=== PATIENT | male | born 1970 | race Caucasian/White ===

== ENCOUNTER 2016-09-09 15:51 | Emergency (ER) | payer OTHER ==
[~2016-09-09] VITALS: Ht 180.3 cm; Wt 129.3 kg
[~2016-09-09 15:51] MED LIST: CHOL4PAC19; CYCL10TA9 PO; FLUT1DIS26; MESA1.2T; NAPR-243 PO; NYST1000; OMEP-10; PRAM28CR2; SULF1TAB38 PO; TROL85CR
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
[2016-09-09] MEDS ORDERED: HYDROcodone/APAP 10 MG/325 MG (LORTAB) TAB PO STA (16:59)
[2016-09-09] MEDS ORDERED: KETOROLAC 60 MG/2 ML VIAL IM STA (16:59)
[2016-09-09] MEDS ORDERED: ORPHENADRINE 60 MG/2 ML (NORFLEX) AMP IM STA (16:59)
--- NOTE | 2016-09-09 17:30 | Diagnostic Imaging Report ---
INDICATION: Right-sided neck pain. No trauma reported. EXAMINATION: Three views of the cervical spine were obtained. FINDINGS: Good alignment of the vertebral bodies. Body heights and disc spaces are well maintained. Atlantoaxial joint is intact. Prevertebral soft tissues are not widened. No fractures are demonstrated. IMPRESSION: Normal cervical spine. Dictated by: Dictated on workstation # [id number]
[2016-09-09] MEDS ORDERED: CYCL10TA9 PO (18:36)
[2016-09-09] MEDS ORDERED: PRD20T PO (18:36)
[2016-09-09] MEDS ORDERED: HYDR-3812 PO (18:36)
[2016-09-09 18:54] VITALS: BP 110/78
== END 2016-09-09 18:54 | disposition home or self-care (01) ==
LOC: EDUNIT# 15:51 → ER 15:53
DX: M43.6 Torticollis (principal); S29.012A Strain of muscle and tendon of back wall of thorax, initial encounter; X58.XXXA Exposure to other specified factors, initial encounter; Y99.8 Other external cause status
CPT/HCPCS: 72040; 96372

== ENCOUNTER → 2016-12-14 | Outpatient (CLI) | payer OTHER ==
[~2016-12-14] MED LIST changes: +HYDR-3812 PO; +PRD20T PO
[2016-12-14 12:54] LABS: ALANINE AMINOTRANSFERASE 31 U/L (0-55); ALBUMIN 4.1 G/DL (3.2-4.5); ANION GAP 8 MMOL/L (5-14); ASPARTATE AMINO TRANSFERASE 18 U/L (5-34); BILIRUBIN,TOTAL 0.6 MG/DL (0.1-1.0); BLOOD UREA NITROGEN 13 MG/DL (7-18); BUN/CREATININE RATIO 16; CARBON DIOXIDE 27 MMOL/L (21-32); CHLORIDE 106 MMOL/L (98-107); CHOLESTEROL 176 MG/DL (< 200); DIRECT LDL 121 MG/DL (1-129); GFR ESTIMATED > 60; GLUCOSE 93 MG/DL (70-105); POTASSIUM 4.1 MMOL/L (3.6-5.0); SODIUM 141 MMOL/L (135-145); TOTAL PROTEIN 6.8 G/DL (6.4-8.2); TRIGLYCERIDES 71 MG/DL (<150); VLDL CHOLESTEROL 14 MG/DL (5-40)
== END ==
LOC: LAB 12:20
PROVIDERS: ATTEND Family Medicine
DX: Z00.00 Encounter for general adult medical examination without abnormal findings (principal); Z13.1 Encounter for screening for diabetes mellitus; Z13.220 Encounter for screening for lipoid disorders
CPT/HCPCS: 36415; 80053; 80061

== ENCOUNTER 2017-08-03 08:11 | Day surgery (SDC) | payer OTHER ==
[~2017-08-03] VITALS: Ht 180.3 cm; Wt 129.3 kg
[~2017-08-03 08:11] MED LIST changes: +BUDE10.2 IH
[2017-08-03] MEDS ORDERED: LACTATED RINGERS 1,000 ML IV ONE (08:20)
[2017-08-03 08:30] VITALS: BP 120/76
[2017-08-03] MEDS ORDERED: LACTATED RINGERS 1,000 ML IV PRN (08:30)
[2017-08-03] MEDS ORDERED: MIDAZOLAM 5 MG/5 ML (VERSED) VIAL ONE (08:36)
[2017-08-03] MEDS ORDERED: proPOfol 200 MG/20 ML (DIPRIVAN) VIAL IV ONE (08:36)
--- NOTE | 2017-08-03 08:51 | Progress Note-Pre Operative ---
Pre-Operative Progress Note H&P Reviewed The H&P was reviewed, patient examined and no changes noted. Date Seen by Provider: Aug 03, 2017 Time Seen by Provider: 08:40 Date H&P Reviewed: Aug 03, 2017 Time H&P Reviewed: 08:40 Pre-Operative Diagnosis: dysphagia MEHREEN FIGUEROA DO Aug 03, 2017 08:51
[2017-08-03] MEDS ORDERED: HURRICAINE EXT TUBE (BENZOCAINE) XX PRN (09:15)
--- NOTE | 2017-08-03 09:20 | Progress Note-Post Operative ---
Post-Operative Progess Note Surgeon (s)/Marine Technician (s) Surgeon MEHREEN FIGUEROA DO Marine Technician: na Pre-Operative Diagnosis dysphagia Post-Operative Diagnosis antral ulceration, slight reflux esophagitis Procedure & Operative Findings Date of Procedure 08/03/17 Procedure Performed/Findings egd c biopsies Anesthesia Type per transit proof machine operator Estimated Blood Loss Estimated blood loss (mL): scant Specimens/Packing Specimens Removed antrum and ge junction MEHREEN FIGUEROA DO Aug 03, 2017 09:20
[2017-08-03] MEDS ORDERED: SUCR1TAB36 PO (09:21)
[2017-08-03] MEDS ORDERED: PANT40TA2 PO (09:21)
--- NOTE | 2017-08-03 09:22 | Discharge Inst-Simple/Standard ---
Discharge Inst-Standard Discharge Medications New, Converted or Re-Newed RX: Transmitted to Pharmacy Patient Instructions/Follow Up Plan of Care/Instructions/FU: 2-3 weeks nathalie Activity as Tolerated: Yes Discharge Diet: Regular Diet MEHREEN FIGUEROA DO Aug 03, 2017 09:22
[2017-08-03 09:45] VITALS: BP 127/62
[2017-08-03] MEDS ORDERED: HURRICAINE EXT TUBE (BENZOCAINE) ONE (10:07)
[2017-08-03 10:10] VITALS: BP 119/78
[2017-08-03 10:15] VITALS: BP 119/78
--- NOTE | 2017-08-03 13:56 | OPERATIVE REPORT ---
DATE OF SERVICE: 08/03/2017 PREOPERATIVE DIAGNOSIS: Dysphagia. POSTOPERATIVE DIAGNOSES: Antral ulceration and reflux esophagitis. PROCEDURE: EGD with biopsies. SURGEON: Mehreen Ferrer DO. ANESTHESIA: Per CARPET INSPECTOR FINISHED. ESTIMATED BLOOD LOSS: Scant. COMPLICATIONS: None. INDICATIONS: The patient is a 46-year-old male with some difficulty with swallowing. He understands risks and benefits of procedure and wished to proceed with procedure. Consent was signed in the chart. PROCEDURE: The patient was taken to the endoscopy suite, placed in left lateral recumbent position. Timeout was performed. Scope was inserted in mouth, down the esophagus, stomach and into the duodenum without difficulty. There are some slight erythematous changes within the duodenum. Scope was slowly retracted back into the stomach, which was further insufflated. The antrum ulceration visualized more linear. Biopsy of this area was obtained. Another biopsy of the antrum was obtained. The scope was retroflexed noting no hiatal hernia. No polyps, masses or ulcerations. Scope was returned to its normal position, slowly withdrawn to the distal esophagus which at the GE junction had some slight erythematous changes consistent with reflux esophagitis. Biopsy was obtained. Scope was then slowly retracted back noting no other pathology. The patient tolerated procedure well without any complications and was taken to recovery room in stable condition. RECOMMENDATIONS: The patient will be started on Protonix 40 mg daily and Carafate 1 gram four times a day and we will have follow up on biopsies to see how he is doing in approximately two to three weeks. If he has any problems prior to that, he should be reevaluated at that time. Job ID: [id number] DocumentID: [id number] Dictated Date: 08/03/2017 09:24:47 Financial Administrator Date: 08/03/2017 13:55:25 Dictated By: MEHREEN FERRER DO [facility]
== END 2017-08-03 10:20 | disposition home or self-care (01) ==
LOC: ENDO 08:11
PROVIDERS: ATTEND Surgery
DX: K21.0 Gastro-esophageal reflux disease with esophagitis (principal); K25.9 Gastric ulcer, unspecified as acute or chronic, without hemorrhage or perforation; J45.909 Unspecified asthma, uncomplicated; G47.33 Obstructive sleep apnea (adult) (pediatric)

== ENCOUNTER 2019-05-26 08:59 | Emergency (ER) | payer SELFPAY ==
[~2019-05-26] VITALS: Ht 180 cm; Wt 121.0 kg
[~2019-05-26 08:59] MED LIST changes: +ACHD5005 PO; -HYDR-3812 PO; +PANT40TA2 PO; +SUCR1TAB36 PO
--- NOTE | 2019-05-26 09:23 | ED Chest Pain ---
General Chief Complaint: Chest Pain Stated Complaint: CHEST PAIN;LEFT ARM NUMB Source: patient Exam Limitations: no limitations History of Present Illness Date Seen by Provider: May 26, 2019 Time Seen by Provider: 09:01 Initial Comments Patient presents to ER by private conveyance with chief complaint of 2 weeks of chest pain shortness of breath. It's in his left chest. The intermittent pain is not related to exertion. He has not had it checked out. He started new job about a week ago. He said just about half hour prior to arrival his chest pain shot up to an 8 out of 10, sharp radiating down his left arm with some tingling in his fingers. He had no nausea or jaw or neck pain. He's had a gallbladder out many years ago. No history of coronary disease hypertension and hyperlipidemia smoking or diabetes. He follows with Dr. Frankel. He takes some vitamins, magnesium, zinc, vitamin C etc. but no other routine medications. He denies any medical allergies but says that he avoids morphine because people in his family have had kidney failure secondary to it. He had some loose stool earlier today. He says he feels like he has a lot of gas buildup in his colon and rumbling in his abdomen. No abdominal pain. He says he does have a history of diverticulosis. He says the pain 30 minutes ago was 8 out of 10 now it is 5 out of 10. EGD [address] Figueroa for dysphagia showing antral ulceration and reflux esophagitis. Allergies and Home Medications Allergies Coded Allergies: morphine (Verified Adverse Reaction, Unknown, 05/26/19) Home Medications Budesonide/Formoterol Fumarate 10.2 Gm Hfa.aer.ad, 2 PUFF IH BID, (Reported) Omeprazole 40 Mg Capsule., 40 MG PO DAILY Prescribed by: DEX DANIEL on 05/26/19 111 Pantoprazole Sodium 40 Mg Tablet., 40 MG PO DAILY Prescribed by: MEHREEN FIGUEROA on 08/03/17920 Sucralfate 1 Gm Tablet, 1 GM PO Q6H Prescribed by: MEHREEN FIGUEROA on 08/03/17920 Sucralfate 1 Gm Tablet, 1 GM PO QIDACHS Prescribed by: DEX DANIEL on 05/26/19 1117 Patient Home Medication List Home Medication List Reviewed: Yes Review of Systems Review of Systems Constitutional: No chills, No fever, No malaise EENTM: No Blurred Vision, No Double Vision Respiratory: Denies Cough, Denies Shortness of Air Cardiovascular: See HPI, Chest Pain; Denies Edema Gastrointestinal: See HPI, Abdomen Distended; Denies Abdominal Pain, Denies Co nstipated; Diarrhea; Denies Nausea, Denies Poor Fluid Intake Genitourinary: Denies Burning, Denies Discharge Musculoskeletal: No back pain, No joint pain Past Wasquzf-Ceclpr-Sytmfw Hx Patient Social History Alcohol Use: Denies Use Recreational Drug Use: No Smoking Status: Never a Smoker Recent Hopitalizations: No Physical Abuse: No Sexual Abuse: No Mistreated: No Fear: No Seasonal Allergies Seasonal Allergies: No Past Medical History Surgeries: Yes (FOOT SURGERY-1998) Gallbladder, Vasectomy Respiratory: Yes Asthma, Sleep Apnea Currently Using CPAP: Yes Cardiac: No Neurological: No Reproductive Disorders: No Gastrointestinal: No (dysphagia) Musculoskeletal: Yes Endocrine: No HEENT: No Cancer: No Psychosocial: No Integumentary: No Blood Disorders: No Family Medical History No Pertinent Family Hx Physical Exam Vital Signs Vital Signs - First Documented 05/26/19 09:11 Temp 37.0 Pulse 64 Resp 20 B/P (MAP) 121/83 (96) Pulse Ox 97 O2 Delivery Room Air Capillary Refill : Less Than 3 Seconds Height, Weight, BMI Height: 5'11.00" Weight: 285lbs. 0.0oz. 129.218190fh; 39.8 BMI Method:Stated General Appearance: Mild Distress, Obese HEENT: PERRL/EOMI, Pharynx Normal, Moist Mucous Membranes Neck: Full Range of Motion, Normal Inspection Respiratory: Lungs Clear, Normal Breath Sounds, No Accessory Muscle Use, No Respiratory Distress, Other (minimal chest pain reproduced on direct palpation of left anterior chest) Cardiovascular: Regular Rate, Rhythm, No Edema, Normal Peripheral Pulses Gastrointestinal: Normal Bowel Sounds (active), No Organomegaly, Non Tender, Soft Extremity: Normal Capillary Refill, Normal Inspection Progress/Results/Core Measures Results/Orders Lab Results Laboratory Tests Test 05/26/19 09:14 05/26/19 11:33 Range/Units White Blood Count 5.8 4.3-11.0 10^3/uL Red Blood Count 5.02 4.35-5.85 10^6/uL Hemoglobin 15.5 13.3-17.7 G/DL Hematocrit 46 40-54 % Mean Corpuscular Volume 92 80-99 FL Mean Corpuscular Hemoglobin 31 25-34 PG Mean Corpuscular Hemoglobin Concent 34 32-36 G/DL Red Cell Distribution Width 14.3 10.0-14.5 % Platelet Count 269 130-400 10^3/uL Mean Platelet Volume 9.2 7.4-10.4 FL Neutrophils (%) (Auto) 71 42-75 % Lymphocytes (%) (Auto) 15 12-44 % Monocytes (%) (Auto) 11 0-12 % Eosinophils (%) (Auto) 3 0-10 % Basophils (%) (Auto) 0 0-10 % Neutrophils # (Auto) 4.1 1.8-7.8 X 10^3 Lymphocytes # (Auto) 0.9 L 1.0-4.0 X 10^3 Monocytes # (Auto) 0.6 0.0-1.0 X 10^3 Eosinophils # (Auto) 0.2 0.0-0.3 10^3/uL Basophils # (Auto) 0.0 0.0-0.1 10^3/uL Prothrombin Time 12.7 12.2-14.7 SEC INR Comment 0.9 0.8-1.4 Activated Partial Thromboplast Time 30 24-35 SEC Sodium Level 141 135-145 MMOL/L Potassium Level 3.4 L 3.6-5.0 MMOL/L Chloride Level 107 98-107 MMOL/L Carbon Dioxide Level 23 21-32 MMOL/L Anion Gap 11 5-14 MMOL/L Blood Urea Nitrogen 8 7-18 MG/DL Creatinine 0.77 0.60-1.30 MG/DL Estimat Glomerular Filtration Rate > 60 BUN/Creatinine Ratio 10 Glucose Level 107 H 70-105 MG/DL Calcium Level 9.2 8.5-10.1 MG/DL Corrected Calcium 9.3 8.5-10.1 MG/DL Magnesium Level 2.1 1.6-2.4 MG/DL Total Bilirubin 0.7 0.1-1.0 MG/DL Aspartate Amino Transf (AST/SGOT) 31 5-34 U/L Alanine Aminotransferase (ALT/SGPT) 55 0-55 U/L Alkaline Phosphatase 44 40-136 U/L Myoglobin 138.3 H 10.0-92.0 NG/ML Troponin I < 0.028 < 0.028 <0.028 NG/ML B-Type Natriuretic Peptide 63.2 <100.0 PG/ML Total Protein 6.3 L 6.4-8.2 GM/DL Albumin 3.9 3.2-4.5 GM/DL Lipase 19 8-78 U/L My Orders Orders - FREDYDEX J Continuous Ekg Monitoring (05/26/19 09:06) Ekg Tracing (05/26/19 09:06) Cbc With Automated Diff (05/26/19 09:16) Magnesium (05/26/19 09:16) Chest 1 View, Ap/Pa Only (05/26/19 09:16) Cardiac Profile 1 (05/26/19 09:16) Comprehensive Metabolic Panel (05/26/19 09:16) Myoglobin Serum (05/26/19 09:16) Protime With Inr (05/26/19 09:16) Partial Thromboplastin Time (05/26/19 09:16) O2 (05/26/19 09:16) Lipid Panel (05/27/19 06:00) Ed Iv/Invasive Line Start (05/26/19 09:16) Lipase (05/26/19 09:16) BNP (05/26/19 09:16) Nitroglycerin 0.4 Mg Btl 25's (Nitrostat (05/26/19 09:30) Aspirin Chewable Tablet (Baby Aspirin Ch (05/26/19 09:30) Lidocaine 2% Viscous 15 Ml (Xylocaine Vi (05/26/19 10:00) Antacid Suspension (Mylanta Suspension (05/26/19 10:00) Pepcid Po (05/26/19 09:47) Troponin I (05/26/19 11:30) Ketorolac Injection (Toradol Injection) (05/26/19 12:00) Medications Given in ED Current Medications Medications Dose Ordered Sig/Alin Route Start Time Stop Time Status Last Admin Dose Admin Al Hydrox/Mg Hydrox/Simethicone 30 ml ONCE ONCE PO 05/26/19 10:00 05/26/19 10:01 DC 05/26/19 09:52 30 ML Aspirin 324 mg ONCE ONCE PO 05/26/19 09:30 05/26/19 09:31 DC 05/26/19 09:36 324 MG Lidocaine HCl 15 ml ONCE ONCE PO 05/26/19 10:00 05/26/19 10:01 DC 05/26/19 09:52 15 ML Nitroglycerin 0.4 mg UD PRN SL 05/26/19 09:30 05/26/19 09:36 0.4 MG Vital Signs/I&O 05/26/19 05/26/19 09:11 09:11 Temp 37.0 Pulse 64 Resp 20 B/P (MAP) 121/83 (96) Pulse Ox 97 O2 Delivery Room Air Progress Progress Note #1: Time: : Progress Note Aspirin and nitroglycerin. If nitroglycerin does not help try GI cocktail. It's possible he has diverticulitis which is causing referred chest and shoulder pain. Cardiac workup. Lung sound clear. Gastritis, PUD, or pancreatitis are also possibilities. If the troponin is negative then his heart score is 3 points. Low risk; 0.91.7% 30-day MACE Repeat troponin at 3 hours and if negative, discharge home with outpatient follow-up. Progress Note #2: Time: : Progress Note Epigastric tenderness as disappeared after the GI cocktail. However still having some tingling in the forearm and 1 out of 10 pain in the chest is reproducible by direct palpation. Suspect there are multiple things going on. He does have a history of this erosive esophagitis. Plan to put him out with Carafate and omeprazole. Delta troponin 4 hours after the start of the last episode the 11:30 this morning. If it's negative we will get him set up for outpatient follow-up with Dr. Keane Wednesday or Wednesday and with Dr. Pardo to discuss why he is having the chest wall discomfort and paresthesias of the left upper extremity. Initial ECG Impression Date: May 26, 2019 Initial ECG Impression Time: 09:05 Initial ECG Rate: 65 Initial ECG Rhythm: Normal Sinus Initial ECG Intervals: Normal Initial ECG Impression: Normal, Nonspecific Changes Initial ECG Comparisson: No Previous ECG Available Comment Normal sinus rhythm without ST elevation or depression. Diagnostic Imaging Diagonstic Imaging: Xray Plain Films/CT/US/NM/MRI: chest (1v) Comments NAME: KATEY MEJIA [facility] REC#: [id number] PT STATUS: REG ER : 1970 PHYSICIAN: DEX DANIEL MD ADMIT DATE: 05/26/19/ER Draft Date of Exam:05/26/19 CHEST 1 VIEW, AP/PA ONLY Patient History: Chest pain. Technique: Single frontal view of the chest Comparison: 01/24/2007 FINDINGS: The lung volumes are normal. No focal consolidation is seen. No large pleural effusion or pneumothorax is seen. The cardiomediastinal silhouette is normal in size and contour. No acute osseous abnormality is seen. IMPRESSION: No acute pulmonary abnormality seen. Dictated on workstation # [id number] Dict: 05/26/19929 Trans: 05/26/19930 [facility] [id number] Interpreted by: WILMAR BEAR MD Electronically signed by: Reviewed: Reviewed by Me Departure Impression Primary Impression: Chest pain Qualified Codes: R07.9 - Chest pain, unspecified Additional Impressions: Gastroesophageal reflux disease Qualified Codes: K21.9 - Gastro-esophageal reflux disease without esophagitis Paresthesia and pain of left extremity Disposition: 01 HOME, SELF-CARE Condition: Stable Departure-Patient Inst. Decision time for Depature: 11:59 Referrals: SARAH KEANE MD, RACHEL L MD (PCP/Family) Primary Care Physician Patient Instructions: Chest Pain (DC) Add. Discharge Instructions: For the chest wall pain plan to use ibuprofen and Tylenol as necessary. Follow-up with Dr. Keane by calling his clinic for an appointment Wednesday or . You should also plan a follow-up appointment afterwards with Dr. Pardo, primary care to discuss the findings from the international account representative as well as what could be causing her symptoms of your left arm and management of your acid reflux symptoms. A 2 week course of Carafate 1 tablet half hour prior to meals and at bedtime can be very helpful for your belly discomfort. I would also recommend taking omeprazole 40 mg daily at the same time. Follow-up with either Dr. Nabil Pardo for your acid reflux if not seeing improvement after this. Return to the ER for having more chest pain that is persistent and does not respond to Tylenol and ibuprofen. All discharge instructions reviewed with patient and/or family. Voiced understanding. Scripts Omeprazole (Omeprazole) 40 Mg Capsule.dr 40 MG PO DAILY for 14 Days, #14 CAP 0 Refills Prov: DEX DANIEL 05/26/19 Sucralfate (Carafate) 1 Gm Tablet 1 GM PO QIDACHS for 14 Days, #56 TAB 0 Refills Prov: DEX DANIEL 05/26/19 Work/School Note: Work Release Form Date Seen in the Emergency Department: May 26, 2019 Return to Work: May 30, 2019 Restrictions: No Restrictions DEX DANIEL May 26, 2019 09:23
[2019-05-26] MEDS ORDERED: NITROGLYCERIN 0.4 MG SL TABS BTL 25'S SL PRN (09:30)
[2019-05-26] MEDS ORDERED: ASPIRIN 81 MG CHEW (CHILDREN'S ASA) PO ONE (09:30)
--- NOTE | 2019-05-26 09:33 | Diagnostic Imaging Report ---
Patient History: Chest pain. Technique: Single frontal view of the chest Comparison: 01/24/2007 FINDINGS: The lung volumes are normal. No focal consolidation is seen. No large pleural effusion or pneumothorax is seen. The cardiomediastinal silhouette is normal in size and contour. No acute osseous abnormality is seen. IMPRESSION: No acute pulmonary abnormality seen. Dictated by: Dictated on workstation # [id number]
[2019-05-26 09:34] LABS: BASOPHILS % (AUTO) 0 % (0-10); EOSINOPHILS # (AUTO) 0.2 10^3/uL (0.0-0.3); EOSINOPHILS % (AUTO) 3 % (0-10); HEMATOCRIT 46 % (40-54); HEMOGLOBIN 15.5 G/DL (13.3-17.7); LYMPHOCYTES # (AUTO) 0.9 X 10^3 (1.0-4.0); LYMPHOCYTES % (AUTO) 15 % (12-44); MEAN CORPUSCULAR HEMOGLOBIN 31 PG (25-34); MEAN CORPUSCULAR HGB CONC 34 G/DL (32-36); MEAN CORPUSCULAR VOLUME 92 FL (80-99); MEAN PLATELET VOLUME 9.2 FL (7.4-10.4); MONOCYTES # (AUTO) 0.6 X 10^3 (0.0-1.0); MONOCYTES % (AUTO) 11 % (0-12); NEUTROPHILS # (AUTO) 4.1 X 10^3 (1.8-7.8); NEUTROPHILS % (AUTO) 71 % (42-75); PLATELET COUNT 269 10^3/uL (130-400); RED CELL DISTRIBUTION WIDTH 14.3 % (10.0-14.5); WHITE BLOOD COUNT 5.8 10^3/uL (4.3-11.0)
[2019-05-26 09:45] LABS: INR 0.9 (0.8-1.4); PROTHROMBIN TIME PATIENT 12.7 SEC (12.2-14.7)
[2019-05-26] MEDS ORDERED: FAMOTIDINE 20 MG (PEPCID) TABLET PO STA (09:47)
[2019-05-26 09:52] LABS: ALANINE AMINOTRANSFERASE 55 U/L (0-55); ALBUMIN 3.9 GM/DL (3.2-4.5); ALKALINE PHOSPHATASE 44 U/L (40-136); BILIRUBIN,TOTAL 0.7 MG/DL (0.1-1.0); BUN/CREATININE RATIO 10; CALCIUM 9.2 MG/DL (8.5-10.1); CARBON DIOXIDE 23 MMOL/L (21-32); CHLORIDE 107 MMOL/L (98-107); CREATININE SERUM 0.77 MG/DL (0.60-1.30); GFR ESTIMATED > 60; GLUCOSE 107 MG/DL (70-105); LIPASE 19 U/L (8-78); MAGNESIUM 2.1 MG/DL (1.6-2.4); POTASSIUM 3.4 MMOL/L (3.6-5.0); SODIUM 141 MMOL/L (135-145); TOTAL PROTEIN 6.3 GM/DL (6.4-8.2)
[2019-05-26] MEDS ORDERED: LIDOCAINE 2% VISCOUS 15 ML UDC PO ONE (10:00)
[2019-05-26] MEDS ORDERED: ANTACID SUSP 30 ML UDC (MYLANTA) PO ONE (10:00)
[2019-05-26] MEDS ORDERED: OMEP40CA36 PO (11:17)
[2019-05-26] MEDS ORDERED: SUCR1TAB36 PO (11:17)
[2019-05-26] MEDS ORDERED: KETOROLAC 30 MG/ML VIAL IVP ONE (12:00)
[2019-05-26 12:39] VITALS: BP 123/72
== END 2019-05-26 12:35 | disposition home or self-care (01) ==
LOC: EDUNIT# 08:59 → ER 09:00
DX: R07.9 Chest pain, unspecified (principal); K21.9 Gastro-esophageal reflux disease without esophagitis; R20.2 Paresthesia of skin; M79.602 Pain in left arm; J45.909 Unspecified asthma, uncomplicated; G47.30 Sleep apnea, unspecified; Z99.89 Dependence on other enabling machines and devices; Z88.5 Allergy status to narcotic agent
CPT/HCPCS: 36415; 71045; 80053; 83690; 83735; 83874; 83880; 84484; 85025; 85610; 85730; 93005

== ENCOUNTER 2020-02-28 05:42 | Emergency (ER) | payer SELFPAY ==
[~2020-02-28] VITALS: Ht 180.3 cm; Wt 108.8 kg
[~2020-02-28 05:42] MED LIST changes: +OMEP40CA27 PO
[2020-02-28 05:50] VITALS: BP 121/95
[2020-02-28] MEDS ORDERED: RX-MUPIROCIN (BACTROBAN) 2% OINT 22 GM TUBE TOP STA (06:22)
--- NOTE | 2020-02-28 06:28 | ED Integumentary General ---
General Chief Complaint: Bite-Animal/Human/Insect Stated Complaint: POSS SPIDER BITE,LEFT LEG Nursing Triage Note: C/O BITE OF SOMEKIND ON HIS LEFT MEDIAL UPPER THIGH. VERBALIZES HE MARKED IT LAST NIGHT WITH A BLACK MARKER, AND USED SOME BAKING SODA PASTE TO DRAW OUT THE SWELLING. PATIENT STATES THIS AM IT IS BIGGER THAN LAST NIGHT AND STARTING TO ITCH. DENIES FEVER OR CHILLS, DENIES USE OF TYLENOL OR IBUPROFEN FOR PAIN RELIEF. Source: patient Exam Limitations: no limitations History of Present Illness Date Seen by Provider: Feb 28, 2020 Time Seen by Provider: 06:09 Initial Comments Here with report of bug bite to the left upper thigh that he notes it is getting a little bigger and has started itching. 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 He does wear shorts due to the heat and is con cerned about spider bite. His had a brown recluse spider bite previously and he is concerned that this may be what that is. States had 3 little dots initially but those are gone away and now just has the area of redness about the size of a quarter. Denies other systemic symptoms Timing/Duration: yesterday Severity: mild Location: extremities Possible Cause: insect bite Associated Symptoms: edema; No fever, No hives, No rash Allergies and Home Medications Allergies Coded Allergies: morphine (Verified Adverse Reaction, Unknown, 02/28/20) Home Medications Budesonide/Formoterol Fumarate 10.2 Gm Hfa.aer.ad, 2 PUFF IH BID, (Reported) Omeprazole 40 Mg Capsule., 40 MG PO DAILY Prescribed by: DEX DANIEL on 05/26/191116 Pantoprazole Sodium 40 Mg Tablet.dr, 40 MG PO DAILY Prescribed by: MEHREEN FIGUEROA on 08/03/17920 Sucralfate 1 Gm Tablet, 1 GM PO Q6H Prescribed by: MEHREEN FIGUEROA on 08/03/17920 Sucralfate 1 Gm Tablet, 1 GM PO QIDACHS Prescribed by: DEX DANIEL on 05/26/191116 Patient Home Medication List Home Medication List Reviewed: Yes Review of Systems Review of Systems Constitutional: see HPI; No chills, No fever Respiratory: no symptoms reported Cardiovascular: no symptoms reported Skin: see HPI, change in color, lesions, pruritus Past Jcuyefs-Lewniu-Bsixvd Hx Past Med/Social Hx: Reviewed Nursing Past Med/Soc Hx Patient Social History Alcohol Use: Denies Use Recreational Drug Use: No Recent Foreign Travel: No Contact w/Someone Who Travel: No Recent Infectious Disease Expo: No Recent Hopitalizations: No Physical Abuse: No Sexual Abuse: No Mistreated: No Fear: No Immunizations Up To Date Tetanus Booster (TDap): More than 5yrs PED Vaccines UTD: Yes Seasonal Allergies Seasonal Allergies: No Past Medical History Surgeries: Yes (FOOT SURGERY-1998) Gallbladder, Vasectomy Respiratory: Yes Asthma, Sleep Apnea Currently Using CPAP: Yes Cardiac: No Neurological: No Reproductive Disorders: No Genitourinary: No Gastrointestinal: No (dysphagia) Musculoskeletal: Yes Endocrine: No HEENT: No Cancer: No Psychosocial: No Integumentary: No Blood Disorders: No Family Medical History Reviewed Nursing Family Hx No Pertinent Family Hx Physical Exam Vital Signs Vital Signs - First Documented 02/28/20 05:50 Temp 36.7 Pulse 67 Resp 18 B/P (MAP) 121/95 (104) Pulse Ox 97 Capillary Refill : Less Than 3 Seconds General Appearance: WD/WN, no apparent distress Cardiovascular: regular rate, rhythm, no murmur Respiratory: lungs clear, normal breath sounds Skin: warm/dry, other (erythema) Skin Problem Location: lower extremities (left upper thigh) Skin Problem Character: erythema (2 cm erythematous area without central pustule or ulceration. No underlying significant induration or palpable abscess.) Progress/Results/Core Measures Results/Orders My Orders Orders - YUE PATTERSON MD Rx-Mupirocin 2% Oint (Rx-Bactroban) (02/28/20 06:22) Vital Signs/I&O 02/28/20 05:50 Temp 36.7 Pulse 67 Resp 18 B/P (MAP) 121/95 (104) Pulse Ox 97 Blood Pressure Mean: 104 Progress Progress Note : Progress Note Seen and evaluated. Mupirocin ointment over the area of concern. Discharged home with return precautions. Patient verbalize understanding instructions and agreement with plan. He is requesting a work note for today because he works in the heat and he wants the antibiotic to set, which was given. Departure Impression Primary Impression: Insect bites Qualified Codes: S70.362A - Insect bite (nonvenomous), left thigh, initial e ncounter; W57.XXXA - Bitten or stung by nonvenomous insect and other nonvenomous arthropods, initial encounter Disposition: 01 HOME, SELF-CARE Condition: Stable Departure-Patient Inst. Decision time for Depature: 06:29 Referrals: VANNESSA QUIROZ MD (PCP/Family) Primary Care Physician Patient Instructions: Insect Bites and Stings (DC), Spider Bites Add. Discharge Instructions: All discharge instructions reviewed with patient and/or family. Voiced understanding. You may use topical hydrocortisone cream over the wound twice daily and then cover with the antibiotic twice daily that was given. You may use a Band-Aid over the wound for the next few days and then as needed. You may use Tylenol or ibuprofen as needed for pain per package directions tolerated. Return for worse pain, increased swelling or itching, markedly increasing redness, fever, chills, bruising that seems to be draining down the leg or other concerns as needed. Work/School Note: Work Release Form Date Seen in the Emergency Department: Feb 28, 2020 Return to Work: Feb 29, 2020 Restrictions: No Restrictions YUE PATTERSON MD Feb 28, 2020 06:28
== END 2020-02-28 06:34 | disposition home or self-care (01) ==
LOC: EDUNIT# 05:42 → ER 05:47
DX: S70.362A Insect bite (nonvenomous), left thigh, initial encounter (principal); J45.909 Unspecified asthma, uncomplicated; Z88.5 Allergy status to narcotic agent; W57.XXXA Bitten or stung by nonvenomous insect and other nonvenomous arthropods, initial encounter
CPT/HCPCS: 99283

== ENCOUNTER 2020-12-08 15:44 | Emergency (ER) | payer OTHER ==
[~2020-12-08] VITALS: Ht 180 cm; Wt 129.0 kg
--- NOTE | 2020-12-08 16:21 | Diagnostic Imaging Report ---
INDICATION: Ankle pain. TECHNIQUE: Three views of the left ankle. CORRELATION STUDY: None. FINDINGS: Transversely oriented fracture of the most distal aspect of the fibula. There is approximately 2 mm diastasis from main fracture fragment. The distal tibia appears intact. Very slight prominent appearance about the ankle medial clear space. Tibiotalar relationship otherwise maintained. Rather significant soft tissue edema. Additionally, there is a lucency projecting over the cuboid bone on single view only. IMPRESSION: 1. Minimally displaced transversely oriented fracture of the distal fibula. Slight widening of the medial ankle joint space. Rather extensive soft tissue swelling. 2. Questionable lucency over the cuboid bone, only partially visualized and demonstrated on a single image only. Consideration for dedicated foot radiographs. Dictated by: Dictated on workstation # [id number]
--- NOTE | 2020-12-08 16:25 | ED Lower Extremity ---
General Chief Complaint: Lower Extremity Stated Complaint: LEFT ANKLE INJ Nursing Triage Note: PT REPORTS TO ED FOR LEFT ANKLE PAIN POST ROLLING IT AROUND 1315. PT REPORTS HE WAS STEPPING DOWN A STEP AT HIS SONS HOUSE WHEN HE ROLLED IT. Nursing Sepsis Screen: No Definite Risk History of Present Illness Date Seen by Provider: Dec 08, 2020 Time Seen by Provider: 16:00 Initial Comments 50-year-old male reports rolling his left ankle approximately 1315 today at his son's house, he was stepping down on stairs when it rolled. He has had previous surgery on the medial aspect of the left ankle by Dr. Lowe. No previous sprains to the left ankle. He is on crutches that he brought from home. He has not taken any pain medication and is denying any need for any at this time. Onset: just prior to arrival Severity: mild Pain/Injury Location: left heel Method of Injury: twisted Allergies and Home Medications Allergies Coded Allergies: morphine (Verified Adverse Reaction, Unknown, 02/28/20) Home Medications Budesonide/Formoterol Fumarate 10.2 Gm Hfa.aer.ad, 2 PUFF IH BID, (Reported) Omeprazole 40 Mg Capsule., 40 MG PO DAILY Prescribed by: DEX DANIEL on 05/26/19 111 Pantoprazole Sodium 40 Mg Tablet.dr, 40 MG PO DAILY Prescribed by: MEHREEN FIGUEROA on 08/03/17920 Sucralfate 1 Gm Tablet, 1 GM PO Q6H Prescribed by: MEHREEN FIGUEROA on 08/03/17920 Sucralfate 1 Gm Tablet, 1 GM PO QIDACHS Prescribed by: DEX DANIEL on 05/26/19 1117 Patient Home Medication List Home Medication List Reviewed: Yes Review of Systems Constitutional: no symptoms reported, see HPI Musculoskeletal: see HPI, joint pain (Lateral aspect left ankle) All Other Systems Reviewed Negative Unless Noted: Yes Past Hqnygce-Rcfhdz-Rohqts Hx Past Med/Social Hx: Reviewed Nursing Past Med/Soc Hx Patient Social History Alcohol Use: Rarely Uses Alcohol Beverage of Choice: Beer Smoking Status: Never a Smoker Recent Infectious Disease Expo: No Recent Hopitalizations: No Immunizations Up To Date Tetanus Booster (TDap): More than 5yrs PED Vaccines UTD: Yes Seasonal Allergies Seasonal Allergies: No Past Medical History Surgeries: Yes (FOOT SURGERY-1998) Gallbladder, Vasectomy Respiratory: Yes Asthma, Sleep Apnea Currently Using CPAP: Yes Cardiac: No Neurological: No Reproductive Disorders: No Genitourinary: No Gastrointestinal: No (dysphagia) Musculoskeletal: Yes Endocrine: No HEENT: No Cancer: No Psychosocial: No Integumentary: No Blood Disorders: No Family Medical History No Pertinent Family Hx Physical Exam Vital Signs Vital Signs - First Documented 12/08/20 15:51 Temp 36.8 Pulse 98 Resp 20 B/P (MAP) 122/80 (94) Pulse Ox 98 O2 Delivery Room Air Capillary Refill : Less Than 3 Seconds Height, Weight, BMI Height: 5'11.00" Weight: 285lbs. 0.0oz. [id number]; 39.00 BMI Method:Stated General Appearance: WD/WN, no apparent distress Cardiovascular: normal peripheral pulses, regular rate, rhythm Respiratory: chest non-tender, lungs clear, normal breath sounds Ankles: left ankle bone tenderness (Distal fibula), left ankle limited range of motion (Secondary to pain), left ankle soft tissue tenderness, left ankle swelling Neurologic/Tendon: normal sensation, normal motor functions, normal tendon functions Neurologic/Psychiatric: no motor/sensory deficits, alert, normal mood/affect, oriented x 3 Skin: normal color, warm/dry Progress/Results/Core Measures Results/Orders My Orders Orders - CHELY LION Ankle, Left, 3 Views (12/08/20 16:00) Foot, Left, 3 Views (12/08/20 16:39) Vital Signs/I&O 12/08/20 12/08/20 15:51 17:12 Temp 36.8 36.8 Pulse 98 80 Resp 20 20 B/P (MAP) 122/80 (94) 120/79 Pulse Ox 98 98 O2 Delivery Room Air Room Air Blood Pressure Mean: 94 Progress Progress Note : Time: 16:00 Progress Note Patient seen and evaluated will obtain x-ray of the left ankle. Ice pack to lateral aspect of left ankle. 1630 possible fracture along the cuboid, will obtain x-rays of the left foot. 1640 no fracture in the left foot. Walking boot applied. Patient instructed to be nonweightbearing on the left lower extremity. Discharge instructions and return precautions reviewed with the patient. Stressed the importance that he follow-up with orthopedics. Diagnostic Imaging Diagonstic Imaging: Xray Plain Films/CT/US/NM/MRI: ankle Comments NAME: KATEY MEJIA [facility] REC#: [id number] PT STATUS: REG ER : 1970 PHYSICIAN: CHELY LION ADMIT DATE: 12/08/20/ER Draft Date of Exam:12/08/20 ANKLE, LEFT, 3 VIEWS INDICATION: Ankle pain. TECHNIQUE: Three views of the left ankle. CORRELATION STUDY: None. FINDINGS: Transversely oriented fracture of the most distal aspect of the fibula. There is approximately 2 mm diastasis from main fracture fragment. The distal tibia appears intact. Very slight prominent appearance about the ankle medial clear space. Tibiotalar relationship otherwise maintained. Rather significant soft tissue edema. Additionally, there is a lucency projecting over the cuboid bone on single view only. IMPRESSION: 1. Minimally displaced transversely oriented fracture of the distal fibula. Slight widening of the medial ankle joint space. Rather extensive soft tissue swelling. 2. Questionable lucency over the cuboid bone, only partially visualized and demonstrated on a single image only. Consideration for dedicated foot radiographs. Dictated on workstation # [id number] Dict: 12/08/20 1616 Trans: 12/08/20 1620 PJE [id number] Diagonstic Imaging: Xray Comments NAME: KATEY MEJIA [facility] REC#: [id number] PT STATUS: REG ER : 1970 PHYSICIAN: CHELY LION ADMIT DATE: 12/08/20/ER Draft Date of Exam:12/08/20 FOOT, LEFT, 3 VIEWS EXAM: Left foot radiograph. EXAM DATE: 12/08/2020. COMPARISON: Left ankle radiograph at 12/08/2020. HISTORY: Left foot pain. TECHNIQUE: Three views of the left foot. FINDINGS: There is no acute fracture, dislocation or destructive osseous process. Joint spaces are normal. The soft tissues are normal. IMPRESSION: No acute osseous abnormality of the left foot. Dictated on workstation # [id number] Dict: 12/08/20 1646 Trans: 12/08/20 1650 PJE [id number] Interpreted by: HOMERO VAUGHN DO Electronically signed by: Reviewed: Reviewed by Me Departure Impression Primary Impression: Sprain and strain of ankle Additional Impression: Fracture of distal fibula Qualified Codes: S82.832A - Other fracture of upper and lower end of left fibula, initial encounter for closed fracture Disposition: 01 HOME, SELF-CARE Condition: Improved Departure-Patient Inst. Decision time for Depature: 16:40 Referrals: BARON PEREZ (PCP/Family) Primary Care Physician SAMUEL RODRÍGUEZ MD, MICHAEL P MD Patient Instructions: Ankle Sprain (DC), Fibula Fracture (DC) Add. Discharge Instructions: Ice and elevate your left ankle for 20 minutes every 2 hours while awake. You may alternate between Motrin 600 mg and Tylenol 650 mg every 4 hours for pain and swelling. Use the crutches at all times, nonweightbearing on your left lower extremity. Wear the boot while ambulatory, you may remove it at night for sleeping and when sitting. Follow-up with orthopedics in approximately 1 week. Return to the emergency department for new, urgent healthcare needs. All discharge instructions reviewed with patient and/or family. Voiced understanding. Work/School Note: Work Release Form Date Seen in the Emergency Department: Dec 08, 2020 Return to Work: Dec 10, 2020 Other Restrictions Listed Below: crutches and non-weight bearing left leg CHELY LION Dec 08, 2020 16:24
--- NOTE | 2020-12-08 16:50 | Diagnostic Imaging Report ---
EXAM: Left foot radiograph. EXAM DATE: 12/08/2020. COMPARISON: Left ankle radiograph at 12/08/2020. HISTORY: Left foot pain. TECHNIQUE: Three views of the left foot. FINDINGS: There is no acute fracture, dislocation or destructive osseous process. Joint spaces are normal. The soft tissues are normal. IMPRESSION: No acute osseous abnormality of the left foot. Dictated by: Dictated on workstation # [id number]
[2020-12-08 17:12] VITALS: BP 120/79
== END 2020-12-08 17:12 | disposition home or self-care (01) ==
LOC: EDUNIT# 15:44 → ER 15:47
DX: S82.832A Other fracture of upper and lower end of left fibula, initial encounter for closed fracture (principal); S93.402A Sprain of unspecified ligament of left ankle, initial encounter; S96.912A Strain of unspecified muscle and tendon at ankle and foot level, left foot, initial encounter; J45.909 Unspecified asthma, uncomplicated; Z79.51 Long term (current) use of inhaled steroids; Z88.5 Allergy status to narcotic agent; X50.1XXA Overexertion from prolonged static or awkward postures, initial encounter; Y92.009 Unspecified place in unspecified non-institutional (private) residence as the place of occurrence of the external cause
CPT/HCPCS: 73610; 73630

== ENCOUNTER → 2021-02-03 | Outpatient (CLI) | payer OTHER ==
--- NOTE | 2021-02-03 13:21 | Diagnostic Imaging Report ---
EXAMINATION: Left ankle 3 views HISTORY: LT DISTAL FIBULA FRACTURE, LT FOOT PAIN COMPARISON: Left ankle radiograph 12/08/2020 FINDINGS: There has been interval healing of the transverse fracture of the distal left fibula at the lateral malleolus. There is periosteal reaction. No significant displacement. No new acute fracture, dislocation, or destructive osseous process. There is mild diffuse soft tissue swelling. IMPRESSION: 1. Interval healing of the distal left fibula fracture compared to 12/08/2020. Dictated by: Dictated on workstation # [id number]
--- NOTE | 2021-02-03 13:48 | Diagnostic Imaging Report ---
INDICATION: Left foot pain 3 views of the left foot show no fracture, dislocation or other acute abnormalities. IMPRESSION: Negative left foot Dictated by: Dictated on workstation # [id number]
== END ==
LOC: RAD 11:52
PROVIDERS: ATTEND Physician Assistant
DX: S82.832D Other fracture of upper and lower end of left fibula, subsequent encounter for closed fracture with routine healing (principal); X58.XXXD Exposure to other specified factors, subsequent encounter
CPT/HCPCS: 73610; 73630

== ENCOUNTER → 2021-06-04 | Outpatient (CLI) | payer OTHER ==
[~2021-06-04] MED LIST changes: -OMEP40CA27 PO; +OMEP40CA6 PO
[2021-06-04 11:56] LABS: BASOPHILS # (AUTO) 0.1 10^3/uL (0.0-0.1); BASOPHILS % (AUTO) 1 % (0-10); EOSINOPHILS # (AUTO) 0.6 10^3/uL (0.0-0.3); EOSINOPHILS % (AUTO) 8 % (0-10); HEMATOCRIT 49 % (40-54); LYMPHOCYTES # (AUTO) 1.6 10^3/uL (1.0-4.0); LYMPHOCYTES % (AUTO) 21 % (12-44); MEAN CORPUSCULAR HEMOGLOBIN 31 pg (25-34); MEAN CORPUSCULAR HGB CONC 33 g/dL (32-36); MEAN CORPUSCULAR VOLUME 95 fL (80-99); MONOCYTES # (AUTO) 0.9 10^3/uL (0.0-1.0); MONOCYTES % (AUTO) 11 % (0-12); NEUTROPHILS # (AUTO) 4.5 10^3/uL (1.8-7.8); NEUTROPHILS % (AUTO) 59 % (42-75); PLATELET COUNT 219 10^3/uL (130-400); WHITE BLOOD COUNT 7.7 10^3/uL (4.3-11.0)
[2021-06-04 12:07] LABS: ALBUMIN 4.1 GM/DL (3.2-4.5)
[2021-06-04 12:09] LABS: CALCIUM 9.2 MG/DL (8.5-10.1)
[2021-06-04 12:10] LABS: TOTAL PROTEIN 7.1 GM/DL (6.4-8.2)
[2021-06-04 12:12] LABS: BILIRUBIN,TOTAL 0.6 MG/DL (0.1-1.0)
[2021-06-04 12:14] LABS: CREATININE SERUM 0.78 MG/DL (0.60-1.30)
--- NOTE | 2021-06-04 12:20 | Diagnostic Imaging Report ---
Indication: Upper quadrant pain. TIME OF EXAM: 12:11 PM Heart size normal. Lungs are clear. No free air is identified. There are surgical clips in right quadrant. The bowel gas pattern appears nonobstructed. No pathologic calcifications are seen. IMPRESSION: No acute feature detected. Dictated by: Dictated on workstation # [id number]
== END ==
LOC: RAD 11:29
PROVIDERS: ATTEND Internal Medicine
DX: R10.11 Right upper quadrant pain (principal)
CPT/HCPCS: 36415; 74022; 80053; 82150; 83690; 85025; 86141

== ENCOUNTER → 2021-07-25 | Outpatient (CLI) | payer OTHER ==
[~2021-07-25] MED LIST changes: +CYCL10TA25 PO
== END ==
LOC: LABNPT 09:44
PROVIDERS: ATTEND Internal Medicine
DX: Z20.822 Contact with and (suspected) exposure to COVID-19 (principal)
CPT/HCPCS: 87636

== ENCOUNTER 2022-03-24 19:45 | Emergency (ER) | payer OTHER ==
[2022-03-24 20:14] VITALS: BP 153/89
[2022-03-24 20:21] LABS: BILIRUBIN,URINE NEGATIVE (NEGATIVE); CLARITY,URINE CLEAR; COLOR,URINE YELLOW; GLUCOSE, URINE (UA) NEGATIVE (NEGATIVE); KETONES,URINE NEGATIVE (NEGATIVE); LEUKOCYTE ESTERASE ,URINE NEGATIVE (NEGATIVE); NITRITE,URINE NEGATIVE (NEGATIVE); PH,URINE 6.5 (5-9); PROTEIN,URINE TRACE (NEGATIVE)
[2022-03-24] MEDS ORDERED: NS IV 1000 ML 1,000 ML IV STA (20:27)
[2022-03-24] MEDS ORDERED: fentaNYL INJ 100 MCG/2 ML AMP IVP STA (20:27)
[2022-03-24 20:30] LABS: BACTERIA,URINE NEGATIVE /HPF; WBC,URINE 0-2 /HPF
--- NOTE | 2022-03-24 20:30 | ED Abdominal Pain ---
General Chief Complaint: Abdominal/GI Problems Stated Complaint: LOWER ABD PAIN Nursing Triage Note: PT PRESENTS WITH LLQ PAIN X4 HOURS. DENIES N/V/D Source of Information: Patient Exam Limitations: No Limitations (FLYNN BLACKMAN) History of Present Illness Date Seen by Provider: Mar 24, 2022 Time Seen by Provider: 20:28 Initial Comments Patient is a 51-year-old male who presents ED with left-sided abdominal pain located to the left lower quadrant. acute onset about 4 to 5 hours ago. Pain has increased with radiation to the right lower abdomen. Denies of any urinary symptoms, increased urine frequency, hematuria. Similar pain 2 weeks ago that resolved after drinking water. He attempted to drink water this evening with no improvement. Denies nausea, vomiting, diarrhea. History of cholecystectomy. Denies of any recent travels or surgeries. Denies taking pain medication at home. (FLYNN BLACKMAN) Allergies and Home Medications Allergies Coded Allergies: morphine (Verified Adverse Reaction, Unknown, 02/28/20) Patient Home Medication List Home Medication List Reviewed: Yes (FLYNN BLACKMAN) Budesonide/Formoterol Fumarate (Symbicort 160-4.5 Mcg Inhaler) 10.2 Gm Hfa.aer.ad, 2 PUFF IH BID, (Reported) Entered as Reported by: BHARATHI SHARPE on 07/28/17 1444 Cephalexin (Cephalexin) 500 Mg Tablet, 500 MG PO BID Prescribed by: TOM MARQUES on 03/24/222142 Hydrocodone/Acetaminophen (Hydrocodone-Acetamin 5-325 mg) 5 Mg-325 Mg Tablet, 1 TAB PO Q4H PRN for PAIN-MODERATE (5-7) Prescribed by: TOM MARQUES on 03/24/222142 Omeprazole (Omeprazole) 40 Mg Capsule., 40 MG PO DAILY Prescribed by: DEX DANIEL on 05/26/19 1117 Ondansetron (Ondansetron Odt) 4 Mg Tab.rapdis, 4 MG PO Q4H Prescribed by: TOM MARQUES on 03/24/222142 Pantoprazole Sodium (Protonix) 40 Mg Tablet., 40 MG PO DAILY Prescribed by: MEHREEN FIGUEROA on 08/03/17920 Sucralfate (Carafate) 1 Gm Tablet, 1 GM PO Q6H Prescribed by: MEHREEN FIGUEROA on 08/03/17 09 Sucralfate (Carafate) 1 Gm Tablet, 1 GM PO QIDACHS Prescribed by: DEX DANIEL on 05/26/19 1117 Tamsulosin HCl (Flomax) 0.4 Mg Cap, 0.4 MG PO DAILY Prescribed by: TOM MARQUES on 03/24/222142 Review of Systems Review of Systems Constitutional: No chills, No diaphoresis, No malaise, No weakness EENTM: No Double Vision, No Eye Pain Respiratory: Denies Cough, Denies Orthopnea Cardiovascular: Denies Chest Pain Gastrointestinal: Abdominal Pain; Denies Diarrhea, Denies Nausea, Denies Vomiting Genitourinary: Denies Burning, Denies Discharge Musculoskeletal: No back pain, No joint pain Skin: No change in color (FLYNN BLACKMAN) All Other Systems Reviewed Negative Unless Noted: Yes (FLYNN BLACKMAN) Past Idntiug-Jqbmdd-Nkshic Hx Patient Social History Tobacco Use?: No Substance use?: No Alcohol Use?: No Pt feels they are or have been: No (FLYNN BLACKMAN) Immunizations Up To Date Tetanus Booster (TDap): More than 5yrs PED Vaccines UTD: Yes Influenza Vaccine Up-to-Date: No; Not Current (FLYNN BLACKMAN) Seasonal Allergies Seasonal Allergies: No (FLYNN BLACKMAN) Past Medical History Surgery/Hospitalization HX: GALLBLADDER Surgeries: Yes (FOOT SURGERY-1998) Gallbladder, Vasectomy Respiratory: Yes Asthma, Sleep Apnea Currently Using CPAP: Yes Cardiac: No Neurological: No Reproductive Disorders: No Genitourinary: No Gastrointestinal: No (dysphagia) Musculoskeletal: Yes Endocrine: No HEENT: No Cancer: No Psychosocial: No Integumentary: No Blood Disorders: No (FLYNN BLACKMAN) Family Medical History No Pertinent Family Hx (FLYNN BLACKMAN) Physical Exam Vital Signs Vital Signs - First Documented 03/24/22 20:14 Pulse 82 Resp 18 B/P (MAP) 153/89 (110) Pulse Ox 95 O2 Delivery Room Air (NE CAMP MD) Vital Signs Capillary Refill : (FLYNN BLACKMAN) Height/Weight/BMI Height: 5'11.00" Weight: 285lbs. 0.0oz. [id number]; 39.00 BMI Method:Stated General Appearance: WD/WN, no apparent distress HEENT: PERRL/EOMI, normal ENT inspection, TMs normal, pharynx normal Neck: non-tender, full range of motion, supple, normal inspection Respiratory: chest non-tender, lungs clear, normal breath sounds, no respiratory distress, no accessory muscle use Cardiovascular: regular rate, rhythm, no edema, no gallop, no JVD Gastrointestinal: normal bowel sounds, soft, no organomegaly, tenderness (Left lower quadrant tenderness on palpation. Normal bowel sounds throughout.) Extremities: normal range of motion, non-tender, normal inspection, no pedal edema Back: normal inspection, no CVA tenderness Pelvic: normal external exam, normal adnexa Skin: normal color, warm/dry (FLYNN BLACKMAN) Progress/Results/Core Measures Results/Orders Lab Results Laboratory Tests Test 03/24/22 20:17 03/24/22 20:24 Range/Units Urine Color YELLOW Urine Clarity CLEAR Urine pH 6.5 5-9 Urine Specific Bowie 1.025 H 1.016-1.022 Urine Protein TRACE H NEGATIVE Urine Glucose (UA) NEGATIVE NEGATIVE Urine Ketones NEGATIVE NEGATIVE Urine Nitrite NEGATIVE NEGATIVE Urine Bilirubin NEGATIVE NEGATIVE Urine Urobilinogen 1.0 < = 1.0 MG/DL Urine Leukocyte Esterase NEGATIVE NEGATIVE Urine RBC (Auto) 1+ H NEGATIVE Urine RBC 10-25 H /HPF Urine WBC 0-2 /HPF Urine Squamous Epithelial Cells NONE /HPF Urine Renal Epithelial Cells NONE /HPF Urine Crystals NONE /LPF Urine Bacteria NEGATIVE /HPF Urine Casts NONE /LPF Urine Mucus SMALL H /LPF Urine Culture Indicated NO White Blood Count 11.4 H 4.3-11.0 10^3/uL Red Blood Count 5.24 4.30-5.52 10^6/uL Hemoglobin 16.0 13.3-17.7 g/dL Hematocrit 48 40-54 % Mean Corpuscular Volume 92 80-99 fL Mean Corpuscular Hemoglobin 31 25-34 pg Mean Corpuscular Hemoglobin Concent 33 32-36 g/dL Red Cell Distribution Width 12.9 10.0-14.5 % Platelet Count 235 130-400 10^3/uL Mean Platelet Volume 9.0 9.0-12.2 fL Immature Granulocyte % (Auto) 0 % Neutrophils (%) (Auto) 75 42-75 % Lymphocytes (%) (Auto) 10 L 12-44 % Monocytes (%) (Auto) 11 0-12 % Eosinophils (%) (Auto) 3 0-10 % Basophils (%) (Auto) 1 0-10 % Neutrophils # (Auto) 8.5 H 1.8-7.8 10^3/uL Lymphocytes # (Auto) 1.2 1.0-4.0 10^3/uL Monocytes # (Auto) 1.3 H 0.0-1.0 10^3/uL Eosinophils # (Auto) 0.4 H 0.0-0.3 10^3/uL Basophils # (Auto) 0.1 0.0-0.1 10^3/uL Immature Granulocyte # (Auto) 0.0 0.0-0.1 10^3/uL Sodium Level 138 135-145 MMOL/L Potassium Level 3.7 3.6-5.0 MMOL/L Chloride Level 103 98-107 MMOL/L Carbon Dioxide Level 26 21-32 MMOL/L Anion Gap 9 5-14 MMOL/L Blood Urea Nitrogen 11 7-18 MG/DL Creatinine 1.09 0.60-1.30 MG/DL Estimat Glomerular Filtration Rate 82 BUN/Creatinine Ratio 10 Glucose Level 114 H 70-105 MG/DL Calcium Level 9.1 8.5-10.1 MG/DL Corrected Calcium 8.9 8.5-10.1 MG/DL Total Bilirubin 0.6 0.1-1.0 MG/DL Aspartate Amino Transf (AST/SGOT) 25 5-34 U/L Alanine Aminotransferase (ALT/SGPT) 46 0-55 U/L Alkaline Phosphatase 47 40-136 U/L Total Protein 7.0 6.4-8.2 GM/DL Albumin 4.2 3.2-4.5 GM/DL Lipase 13 8-78 U/L (NE CAMP MD) Medications Given in ED Current Medications Medications Dose Ordered Sig/Alin Route Start Time Stop Time Status Last Admin Dose Admin Iohexol 100 ml ONCE ONCE IV 03/24/22 20:45 8/2/22 20:46 DC 03/24/22 20:40 100 ML Ketorolac Tromethamine 30 mg ONCE ONCE IVP 03/24/22 21:15 03/24/22 21:16 DC 03/24/22 21:18 30 MG Sodium Chloride 100 ml ONCE ONCE IV 03/24/22 20:45 03/24/22 20:46 DC 03/24/22 20:40 80 ML (NE CAMP MD) Vital Signs/I&O 03/24/22 20:14 Pulse 82 Resp 18 B/P (MAP) 153/89 (110) Pulse Ox 95 O2 Delivery Room Air (NE CAMP MD) Blood Pressure Mean: 110 Departure Communication (PCP) Patient with a stone at the ureterovesical junction measuring 3 mm with mild left-sided hydronephrosis and hydroureter with left-sided perinephric fat stranding. Concerning for obstruction uropathy. Right kidney is nonobstructive. No bowel obstruction, appendicitis or diverticulitis. No free fluid or abscess. Lab work shows slight elevated white blood count 11.4. Normal kidney function. Was given a liter fluid IV fentanyl and Toradol with improvement of pain. Patient urinalysis positive for hematuria. Due to improvement in his symptoms and reassuring lab work patient will be discharged outpatient with urology outpatient follow-up. Will discharge with pain medication, Flomax, nausea medication. If any worsening symptoms return back to ED for further evaluation. Patient agrees with plan of action. (FLYNN BLACKMAN) Impression Primary Impression: Ureterolithiasis Disposition: 01 HOME, SELF-CARE Condition: Stable Departure-Patient Inst. Decision time for Depature: 21:42 (FLYNN BLACKMAN) Referrals: BARON PEREZ (PCP/Family) Primary Care Physician MIGNON BLAKE MD Patient Instructions: Kidney Stones in Adults Add. Discharge Instructions: Recommend drinking plenty of fluids. Pain medication for pain. Flomax to help urinate. Zofran for nausea. If any worsening symptoms return back to ED. Urology outpatient follow-up All discharge instructions reviewed with patient and/or family. Voiced understanding. Scripts Hydrocodone/Acetaminophen (Hydrocodone-Acetamin 5-325 mg) 5 Mg-325 Mg Tablet 1 TAB PO Q4H PRN for PAIN-MODERATE (5-7), #10 TAB Prov: FLYNN BLACKMAN 03/24/22 Ondansetron (Ondansetron Odt) 4 Mg Tab.rapdis 4 MG PO Q4H for Vomiting, #6 TAB Prov: FLYNN BLACKMAN 03/24/22 Cephalexin (Cephalexin) 500 Mg Tablet 500 MG PO BID for 7 Days, #14 TAB Prov: FLYNN BLACKMAN 03/24/22 Tamsulosin HCl (Flomax) 0.4 Mg Cap 0.4 MG PO DAILY, #20 CAP Prov: FLYNN BLACKMAN 03/24/22 ATTENDING PHYSICIAN NOTE: I was physically present as attending physician in the emergency department during the care of this patient, but I was not directly involved in the decision making or delivery of care for this patient. (NE CAMP MD) FLYNN BLACKMAN Mar 24, 2022 20:30 NE CAMP MD Mar 25, 2022 06:39
[2022-03-24 20:36] LABS: BASOPHILS # (AUTO) 0.1 10^3/uL (0.0-0.1); BASOPHILS % (AUTO) 1 % (0-10); EOSINOPHILS # (AUTO) 0.4 10^3/uL (0.0-0.3); EOSINOPHILS % (AUTO) 3 % (0-10); HEMATOCRIT 48 % (40-54); LYMPHOCYTES # (AUTO) 1.2 10^3/uL (1.0-4.0); LYMPHOCYTES % (AUTO) 10 % (12-44); MEAN CORPUSCULAR HEMOGLOBIN 31 pg (25-34); MEAN CORPUSCULAR HGB CONC 33 g/dL (32-36); MEAN CORPUSCULAR VOLUME 92 fL (80-99); MONOCYTES # (AUTO) 1.3 10^3/uL (0.0-1.0); MONOCYTES % (AUTO) 11 % (0-12); NEUTROPHILS # (AUTO) 8.5 10^3/uL (1.8-7.8); NEUTROPHILS % (AUTO) 75 % (42-75); PLATELET COUNT 235 10^3/uL (130-400); WHITE BLOOD COUNT 11.4 10^3/uL (4.3-11.0)
[2022-03-24] MEDS ORDERED: IOHEXOL 350 MG/ML 100 ML (OMNIPAQUE 350) VIAL IV ONE ×2 (20:45)
[2022-03-24] MEDS ORDERED: HOLD METFORMIN - RECEIVED CONTRAST 20 ML VIAL IV SCH ×2 (20:45)
[2022-03-24] MEDS ORDERED: NS 100 ML (IVPB) BAG IV ONE ×2 (20:45)
[2022-03-24 20:47] LABS: ALBUMIN 4.2 GM/DL (3.2-4.5); POTASSIUM 3.7 MMOL/L (3.6-5.0)
[2022-03-24 20:48] LABS: CALCIUM 9.1 MG/DL (8.5-10.1)
[2022-03-24 20:51] LABS: BILIRUBIN,TOTAL 0.6 MG/DL (0.1-1.0)
[2022-03-24 20:53] LABS: CREATININE SERUM 1.09 MG/DL (0.60-1.30)
--- NOTE | 2022-03-24 21:05 | Diagnostic Imaging Report ---
PROCEDURE: CT abdomen and pelvis with contrast, rule out appendicitis. TECHNIQUE: Multiple contiguous axial images were obtained through the abdomen and pelvis after the administration of intravenous contrast. All CT scans use one or more of the following dose optimizing techniques: automated exposure control, MA and/or KvP adjustment based on patient size and exam type or iterative reconstruction. INDICATION: Left lower quadrant abdominal pain. COMPARISON: Abdominal series 06/04/2021. FINDINGS: Lung bases demonstrate no findings of pneumonia or edema. There is no pleural or pericardial effusion. The liver demonstrates no focal abnormality. The patient is status post cholecystectomy. There is no abnormal biliary dilatation. Hepatic and portal veins are patent. Pancreas is unremarkable. The spleen is normal in size. There is no adrenal mass. The right kidney is normal. The left kidney demonstrates extensive left-sided perinephric fat stranding and there is also mild left-sided hydronephrosis and hydroureter. This appears secondary to a 3 mm stone just above the left ureterovesicular junction. There is additional punctate nonobstructing calculus within the mid left kidney. There is no stone within the bladder. The bladder is nondistended. There are no findings of bowel obstruction. There is no bowel thickening. There is no diverticulitis. There is no appendicitis. There is no free air, free fluid, abscess or adenopathy. The aorta is normal in caliber. There is no acute or suspicious osseous abnormality. IMPRESSION: 1. Left-sided stone at the ureterovesicular junction measuring 3 mm resulting in mild left-sided hydronephrosis and hydroureter with left-sided perinephric fat stranding and delayed enhancement of the left kidney compatible with obstructive uropathy. There is an additional punctate nonobstructing calculus within the left kidney itself. 2. The right kidney is nonobstructed. 3. Previous cholecystectomy. 4. No bowel obstruction, appendicitis or diverticulitis. 5. No free fluid or abscess. Dictated by: Dictated on workstation # [id number]
[2022-03-24] MEDS ORDERED: KETOROLAC 30 MG/ML VIAL IVP ONE (21:15)
[2022-03-24] MEDS ORDERED: TMSL.4C PO (21:43)
[2022-03-24] MEDS ORDERED: CEPH500T PO (21:43)
[2022-03-24] MEDS ORDERED: ONDA4TAB11 PO (21:43)
[2022-03-24] MEDS ORDERED: ACHD5005 PO (21:43)
== END 2022-03-24 22:07 | disposition home or self-care (01) ==
LOC: EDUNIT# 19:45 → ER 19:47
DX: N13.2 Hydronephrosis with renal and ureteral calculous obstruction (principal); Z90.49 Acquired absence of other specified parts of digestive tract; Z28.310 Unvaccinated for COVID-19
CPT/HCPCS: 36415; 74177; 80053; 81000; 83690; 85025